=== PATIENT | female | born 1980 | race Caucasian/White ===

== ENCOUNTER 2020-11-25 07:43 | Emergency (ER) | payer BC, SELFPAY ==
--- NOTE | ~2020-11-25 | CT_ITS ---
EXAMINATION: CT abdomen pelvis w con DATE: 11/25/2020 08:37 INDICATION: Left lower quadrant abdominal pain, nausea. The vaginal bleeding. TECHNIQUE: Computed tomography (CT) of the abdomen and pelvis was performed with 100 cc Omnipaque 350 intravenous contrast. Automated exposure control and iterative reconstruction technique were employe d. Exam dose: 594.68 mGy-cm total exam DLP. COMPARISON: None. FINDINGS: The lung bases are clear of infiltrate or consolidation. Normal heart size. No pericardial or pleural effusion. The liver, gallbladder, bile ducts, spleen, pancreas, pancreatic duct, and adrenal glands and kidneys appear normal. Normal caliber of the abdominal aorta. No intraperitoneal or retroperitoneal or pelvic mass lesion or adenopathy or ascites. Uterus and adnexal areas are unremarkable. The urinary bladder is relatively evacuated and unremarkab le. No CT evidence of appendicitis. No bowel obstruction, bowel wall thickening, pneumatosis or intraperi toneal free air is evident. Small sliding hiatal hernia. There is degenerative change at the apophyseal joints in the lower lumbar and lumbosacral area with a ssociated minimal grade 1 anterolisthesis at L4-5. No suspicious osteolytic or osteoblastic lesions are noted. IMPRESSION: Small sliding hiatal hernia Reviewed, dictated and finalized at [facility]. Reviewed, dictated and finalized at [facility]. IMPRESSION: Small sliding hiatal hernia
[2020-11-25 07:40] VITALS: BP 126/86; PULSE 94; RESP 18; TEMP 36.3; O2SAT 100
--- NOTE | 2020-11-25 07:42 | ED.ABDPAIN ---
HPI - Abdominal Pain General Chief Complaint: Abdominal Pain Stated Complaint: abdominal pain History of Present Illness HPI narrative: Heavy vaginal bleeding for the past few days. Heavier after intercourse yesterday. Associated with lower abdominal pain worst in the LLQ. Also has mild nausea. No constipation or diarrhea. She implanon removed 3 weeks ago and is not sure if this is her period. Related Data Home Medications Medication Instructions Recorded Confirmed No Home Medications 11/25/20 11/25/20 Allergies Allergy/AdvReac Type Severity Reaction Status Date / Time adhesive tape AdvReac Blister Verified 11/25/20 07:52 Review of Systems Review of Systems: All systems reviewed & are unremarkable except as noted in HPI and below Constitutional: Constitutional: Denies chills and Denies fever(s) Eyes: Eyes: Reports no additional eye complaints Cardiovascular: Cardiovascular: Denies chest pain Respiratory: Respiratory: Denies dyspnea Gastrointestinal: Gastrointestinal: Reports as per HPI Genitourinary: Genitourinary: Denies nocturia, Denies dysuria and Denies vaginal discharge Musculoskeletal: Musculoskeletal: Denies back pain Neurologic: Reports system reviewed and no additional complaints, except as documented [facility] Social History Social History (Updated 12/01/20 @ 11:27 by Martin Li MD) Alcohol intake: current Living arrangements: other Gender identity (if verbalized by the patient): Female Sexual Orientation (if Verbalized by the Patient): Straight or Heterosexual Exam Const: General: no acute distress and alert Nutritional Appearance: obese Orientation/consciousness: patient oriented x3 HENMT: Head: normal to inspection Resp: Effort & Inspection: normal respiratory effort Auscultation: clear to auscultation bilaterally Cardio: Rate: regular rate Rhythm: regular rhythm GI: Inspection: non-distended GI Palp: Yes Soft to palpation, Yes Tenderness to palpation present (GI) (LLQ), No Guarding due to palpation present (GI) and No Rebound tenderness present Skin: General skin exam: normal color Neuro: General: patient oriented x3, moves all extremities and CN's II-XI intact bilaterally Speech: normal speech Gait exam (Neuro): Normal gait present Extrem: General: normal to inspection Course Vital Signs Vital signs: Vital Signs Temperature 36.3 C L 11/25/20 07:40 Pulse Rate 94 11/25/20 07:40 Respiratory Rate 18 11/25/20 07:40 Blood Pressure 126/86 11/25/20 07:40 Pulse Oximetry 100 11/25/20 07:40 Temperature 36.3 C L 11/25/20 07:40 Pulse Rate 94 11/25/20 07:40 Respiratory Rate 18 11/25/20 07:40 Blood Pressure 126/86 11/25/20 07:40 Pulse Oximetry 100 11/25/20 07:40 MDM - Abdominal Pain Differential Diagnosis Differential diagnosis: Likely acute appendicitis, calculus of kidney, constipation, diverticulitis, pancreatitis and other (menstraul cramps) Medical Records Attestation: I reviewed the patient's medical records. Lab Data Attestation: I reviewed the patient's lab results. Result diagrams: 11/25/20 08:04 11/25/20 08:04 Labs: Lab Results 11/25/20 11/25/20 11/25/20 Range/Units 08:04 08:04 08:04 WBC 10.1 H (4.5-10.0) K/mm3 RBC 4.12 L (4.2-5.4) M/mm3 Hgb 12.0 (12.0-15.0) g/dL Hct 38.2 (37.0-47.0) % MCV 92.7 (80-100) fl MCH 29.1 (26-34) pg MCHC 31.4 L (32-36) g/dl RDW 15.1 H (11.5-14.5) % Plt Count 285 (150-375) k/mm3 MPV 9.7 (7.4-10.4) fl Immature Gran % (Auto) 0.4 (0-0.5) % Neut % (Auto) 75.2 H (45.5-73.1) % Lymph % (Auto) 17.8 L (18.3-44.2) % [place] % (Auto) 6.0 (2.6-8.5) % Eos % (Auto) 0.2 (0-4.4) % Baso % (Auto) 0.4 (0.2-1.2) % Lymph # (Auto) 1.80 (0.9-3.2) K/mm3 [place] # (Auto) 0.6 (0.1-0.6) K/mm3 Eos # (Auto) 0.0 (0-0.3) K/mm3 Baso # (Auto) 0.0 (0.0-0.1) K/mm3 Abs Immat Gran (auto)
[2020-11-25] MEDS: ONDANSETRON INJ 4 MG/2 ML VIAL IV PUSH (08:07)
[2020-11-25 08:11] LABS: Basophils Percent Auto 0.4 % (0.2-1.2); Eosinophils Percent Auto 0.2 % (0-4.4); Hematocrit 38.2 % (37.0-47.0); Immature Granulocyte Absolute 0.04 K/mm3 (0.00-0.031); Immature Granulocyte Percent A 0.4 % (0-0.5); Lymphocytes Percent Auto 17.8 % (18.3-44.2); Mean Corpuscular HGB Conc 31.4 g/dl (32-36); Mean Corpuscular Hemoglobin 29.1 pg (26-34); Mean Corpuscular Volume 92.7 fl (80-100); Mean Platelet Volume 9.7 fl (7.4-10.4); Monocytes Absolute Auto 0.6 K/mm3 (0.1-0.6); Neutrophils Absolute Auto 7.6 K/mm3 (1.3-6.7); Neutrophils Percent Auto 75.2 % (45.5-73.1); Platelet Count Result 285 k/mm3 (150-375); Red Blood Count 4.12 M/mm3 (4.2-5.4); Red Cell Distribution Width 15.1 % (11.5-14.5); White Blood Count 10.1 K/mm3 (4.5-10.0)
[2020-11-25 08:18] LABS: Add Urine Microscopic? YES; Appearance Urine Cloudy (Clear); Bacteria Urine Trace /hpf; Bilirubin Urine Negative (Negative); Blood Urine 1+ (Negative); Color Urine Yellow (Yellow); Glucose Urine UA Negative (Negative); Ketones Urine Negative (Negative); Leukocyte Esterase Ur 2+ LEU/UL (Negative); Mucus Urine Moderate /lpf; Nitrate Urine Negative (Negative); Protein Urine 1+ mg/dL (Negative); Specific Grav Ur 1.029 (1.001-1.035); Squamous Epithelial Cell Urine Many /hpf (Few); Urobilinogen Urine Negative mg/dL (<2.0); WBC Urine 0-3 /hpf
[2020-11-25 08:21] LABS: Alanine Aminotransferase 25 U/L (4-35); Albumin Level 4.1 g/dL (3.5-5.1); Alkaline Phosphatase 92 U/L (38-126); Anion Gap 9 mmol/L (8-16); Aspartate Amino Transferase 40 U/L (14-36); Bilirubin,Total 0.2 mg/dL (0.2-1.3); Blood Urea Nitrogen 14 mg/dL (7-17); Calcium 8.8 mg/dL (8.4-10.2); Carbon Dioxide 26 mmol/L (22-30); Chloride 106 mmol/L (98-107); Estimated CRCL calculation 111 ml/min; Estimated Glomerular Filt Rate > 60; Glucose 85 mg/dL (65-105); Lipase 238 U/L (23-300); Sodium 141 mmol/L (137-145)
[2020-11-25 08:30] LABS: Potassium 3.6 mmol/L (3.4-5.0)
[2020-11-25] MEDS: KETOROLAC 30 MG/ML VIAL (*BKC) IV PUSH (09:23)
== END 2020-11-25 09:52 | disposition home or self-care (01) ==
LOC: ANHED 09:37
PROVIDERS: Emergency Provider Emergency Medicine
DX: R10.32 Left lower quadrant pain (principal)
CPT/HCPCS: 36415; 74177; 80053; 81001; 81025; 83690; 85025; 96374; 96375; 99284; J1885; J2405; Q9967

== ENCOUNTER 2021-06-22 07:31 | Emergency (ER) | payer BC, SELFPAY ==
[2021-06-22] VITALS (8 sets, daily range): BP systolic 112–140; BP diastolic 71–95; PULSE 71–97; RESP 7–28; TEMP 36.4; O2SAT 95–100
--- NOTE | ~2021-06-22 | US_ITS ---
EXAMINATION: US pelvic complete w TV EXAM DATE: 06/22/2021 10:05 INDICATION: Vaginal bleeding. TECHNIQUE: Pelvic transabdominal and transvaginal sonogram was performed. There are multiple graysca le and Doppler images available for interpretation. There is no prior study for comparison. FINDINGS: Uterus measures 7.7 x 3.8 x 4.2 cm, is anteverted and morphologically normal. Endometrial stripe measures 6 mm, within normal limits. There is no free pelvic fluid. Right adnexa: The ovary measures 4.8 x 2.6 x 3.1 cm and is morphologically normal. Ovarian vascular f low confirmed. Left adnexa: The ovary measures 3.2 x 2.6 x 2.6 cm and has the dominant follicle measuring 3 cm. Ovar gabriella vascular flow confirmed. IMPRESSION: 1. Unremarkable pelvic ultrasound exam. Reviewed, dictated and finalized at [facility]. [employer] SYSTEMS OPERATOR
--- NOTE | 2021-06-22 08:21 | ED.FEMALEGU ---
HPI - Female Genitourinary General Chief complaint: Vaginal Bleeding Stated complaint: VAG BLEEDING Time Seen by Provider: 06/22/21 07:39 History of Present Illness HPI Narrative: Patient is a 41-year-old female who presents to the ER with vaginal bleeding. States she awoke this morning and there is a large spot of light pink blood in 3 small dime sized blood clots that were dark. She reports having sexual intercourse last night but there is no bleeding at that time. She is having no lower abdominal cramping or pain. LMP was 1 week ago. She does have a Nexplanon in her left arm that she is scheduled for removal last week but she missed her appointment with her compensation expert. Patient also reports she has been feeling slightly lightheaded recently. She quit drinking alcohol 3 weeks ago and before then she would drink a half a gallon of whiskey a day. She has had no seizures. No shakes. Patient denies any urinary symptoms. She initially went to [facility] to be evaluated but then left and decided come here. Related Data Home Medications Medication Instructions Recorded Confirmed No Home Medications 11/25/20 11/25/20 Allergies Allergy/AdvReac Type Severity Reaction Status Date / Time adhesive tape AdvReac Blister Verified 06/22/21 07:57 Review of Systems Review of Systems: All systems reviewed & are unremarkable except as noted in HPI and below Constitutional: Constitutional: Denies chills and Denies fatigue ENT: Denies dizziness, Denies nasal congestion and Denies sore throat Gastrointestinal: Gastrointestinal: Denies abdominal pain, Denies nausea and Denies vomiting Genitourinary: Genitourinary: Reports abnormal vaginal bleeding, Denies nocturia, Denies dysuria and Denies vaginal discharge Neurologic: Reports dizziness, Denies focal weakness and Denies numbness Psychiatric: Psychiatric: Reports anxiety PMFSH Past Medical History Medical History (Updated 06/22/21 @ 11:51 by Shaun Waller MD) Anxiety Social History Social History (Updated 12/01/20 @ 11:27 by Martin Li MD) Alcohol intake: current Gender identity (if verbalized by the patient): Female Sexual Orientation (if Verbalized by the Patient): Straight or Heterosexual Exam Narrative: GENERAL: Well-appearing, well-nourished, and in no acute distress. HEAD: Normocephalic, atraumatic. ENT: Mucous membranes moist. CHEST: Clear to auscultation. No respiratory distress. HEART: Regular rate and rhythm. Normal peripheral pulses. ABDOMEN: Soft, nontender, nondistended. Metal Furnace Operator: Normal external genitalia with evidence of old bleeding. Speculum exam with scant dark blood within the vaginal vault. Cervix normal appearance and closed. No hemorrhage. No additional discharge. No tenderness. EXTREMITIES: Normal range of motion. No edema. SKIN: Warm, dry, no rash. NEURO: Alert and oriented x3. Course Course Emergency Course: Patient informed results. Discharge home. No orthostasis. No anemia. No persistent bleeding. Vital Signs Vital signs: Vital Signs Temperature 97.5 F L 06/22/21 07:43 Pulse Rate 84 06/22/21 07:43 Respiratory Rate 18 06/22/21 07:43 Blood Pressure 130/80 06/22/21 07:43 Pulse Oximetry 100 06/22/21 07:43 Temperature 97.5 F L 06/22/21 07:43 Pulse Rate 79 06/22/21 09:01 Respiratory Rate 18 06/22/21 09:01 Blood Pressure 135/71 06/22/21 09:01 Pulse Oximetry 100 06/22/21 09:01 MDM - Female Genitourinary Lab Data Result diagrams: 06/22/21 08:20 06/22/21 08:46 Labs: Lab Results 06/22/21 06/22/21 06/22/21 Range/Units 08:20 08:34 08:46 WBC 5.3 (4.5-10.0) K/mm3 RBC 3.93 L (4.2-5.4) M/mm3 Hgb 12.1 (12.0-15.0) g/dL Hct 37.0 (37.0-47.0) % MCV 94.1 (80-100) fl MCH 30.8 (26-34) pg MCHC 32.7 (32-36) g/dl RDW 15.8 H (11.5-14.5) % Plt Count 202 (150-375) k/mm3 MPV 11.4 H (7.4-10.4) fl Immature Gran %
[2021-06-22] MEDS: SODIUM CHLORIDE 0.9% IV 1,000 ML 999 ML IV CONT (08:22)
--- NOTE | 2021-06-22 08:28 | PC.NURSE ---
pt ambulated to the bathroom with no difficulty
[2021-06-22 09:12] LABS: Alanine Aminotransferase 17 U/L (4-35); Albumin Level 3.8 g/dL (3.5-5.1); Alkaline Phosphatase 65 U/L (38-126); Anion Gap 3 mmol/L (8-16); Aspartate Amino Transferase 28 U/L (14-36); Bilirubin,Total 0.6 mg/dL (0.2-1.3); Blood Urea Nitrogen 13 mg/dL (7-17); Calcium 8.8 mg/dL (8.4-10.2); Carbon Dioxide 29 mmol/L (22-30); Chloride 104 mmol/L (98-107); Estimated CRCL calculation 122 ml/min; Estimated Glomerular Filt Rate > 60; Glucose 94 mg/dL (65-110); Potassium 3.6 mmol/L (3.4-5.0); Sodium 136 mmol/L (137-145)
[2021-06-22 09:21] LABS: Add Urine Microscopic? YES; Appearance Urine Cloudy (Clear); Bacteria Urine Trace /hpf; Bilirubin Urine Negative (Negative); Blood Urine 3+ (Negative); Color Urine Yellow (Yellow); Glucose Urine UA Negative (Negative); Ketones Urine Negative (Negative); Leukocyte Esterase Ur Negative LEU/UL (Negative); Mucus Urine Moderate /lpf; Nitrate Urine Negative (Negative); Protein Urine 1+ mg/dL (Negative); Specific Grav Ur 1.024 (1.001-1.035); Squamous Epithelial Cell Urine Many /hpf (Few); Urobilinogen Urine Negative mg/dL (<2.0)
--- NOTE | 2021-06-22 10:21 | PC.NURSE ---
Called lab and spoke Laisha to add on CBCD
[2021-06-22 10:28] LABS: Basophils Percent Auto 0.4 % (0.2-1.2); Eosinophils Absolute Auto 0.1 K/mm3 (0-0.3); Eosinophils Percent Auto 1.1 % (0-4.4); Hemoglobin 12.1 g/dL (12.0-15.0); Immature Granulocyte Absolute 0.02 K/mm3 (0.00-0.031); Immature Granulocyte Percent A 0.4 % (0-0.5); Immature Platelet Fraction Pct 6.3 % (0.9-11.2); Lymphocytes Absolute Auto 1.08 K/mm3 (0.9-3.2); Lymphocytes Percent Auto 20.3 % (18.3-44.2); Mean Corpuscular HGB Conc 32.7 g/dl (32-36); Mean Corpuscular Hemoglobin 30.8 pg (26-34); Mean Corpuscular Volume 94.1 fl (80-100); Mean Platelet Volume 11.4 fl (7.4-10.4); Monocytes Absolute Auto 0.5 K/mm3 (0.1-0.6); Neutrophils Absolute Auto 3.7 K/mm3 (1.3-6.7); Neutrophils Percent Auto 68.8 % (45.5-73.1); Platelet Count Result 202 k/mm3 (150-375); Red Blood Count 3.93 M/mm3 (4.2-5.4); Red Cell Distribution Width 15.8 % (11.5-14.5); White Blood Count 5.3 K/mm3 (4.5-10.0)
[2021-06-22 11:15] LABS: Stomatocytes 1+ (NORMAL)
[2021-06-22 11:17] LABS: Platelet Estimate Adequate (Adequate)
== END 2021-06-22 12:30 | disposition home or self-care (01) ==
PROVIDERS: Emergency Provider Emergency Medicine
DX: N93.8 Other specified abnormal uterine and vaginal bleeding (principal); F41.9 Anxiety disorder, unspecified
CPT/HCPCS: 36415; 76830; 76856; 80053; 81001; 81025; 85025; 85055; 96360; 99284; J7030